=== PATIENT | female | born 1970 | race American Indian/Alaskan Native ===

== ENCOUNTER 2018-01-30 19:08 | Emergency (ER) | payer SELFPAY ==
[2018-01-30 22:37] VITALS: BP 143/103
[2018-01-31] MEDS ORDERED: FLEXERIL PO ONE (02:32)
[2018-01-31] MEDS ORDERED: TORADOL IM ONE (02:32)
--- NOTE | 2018-01-31 02:42 | Emergency Department Report ---
HPI - General Chief Complaint: Pain General Time Seen by Provider: 01/31/18 02:18 - HPI HPI: She is a 47-year-old female presents to the ED for acute on chronic neuropathic shoulder pain 3 weeks. Patient states in the year of 2013 and she had a fall and hurt her right side. Patient's issues today she's been having intermittent pain. Patient states that pain is throbbing aching and tingling in nature. Patient states she feels it on the back of her shoulder sometimes radiates to her arms. She denies any recent trauma fall or injury to the head neck or arm. She denies fever/chills/nausea vomiting/abdominal pain/chest pain/headache/ blurred vision. She she takes no medication has no other medical problems and asthma allergies to any medication ED Past Medical Hx - Past Medical History Additional medical history: MULTIPLE PAIN FROM FALL IN 2013 - Social History Smoking Status: Unknown if ever smoked Substance Use Type: None - Medications Home Medications: Home Medications Medication Instructions Recorded Confirmed Last Taken Type Cyclobenzaprine [Flexeril 10 MG 10 mg PO QHS PRN #24 tablet 01/31/18 Unknown Rx TAB] Diclofenac Sodium 50 mg PO BID #30 tablet. 01/31/18 Unknown Rx ED Review of Systems ROS: Stated complaint: LEG AND BACK PAIN Other details as noted in HPI Constitutional: denies: chills, fever Eyes: denies: eye pain, eye discharge, vision change ENT: denies: ear pain, throat pain Respiratory: denies: cough, shortness of breath, wheezing Cardiovascular: denies: chest pain, palpitations Endocrine: no symptoms reported Gastrointestinal: denies: abdominal pain, nausea, diarrhea Genitourinary: denies: urgency, dysuria, discharge Musculoskeletal: arthralgia, myalgia. denies: back pain, joint swelling Skin: denies: rash, lesions Neurological: denies: headache, weakness, paresthesias Psychiatric: denies: anxiety, depression Hematological/Lymphatic: denies: easy bleeding, easy bruising Physical Exam - Physical Exam Vital Signs: Vital Signs 01/30/18 22:33 Temperature 98.1 F Pulse Rate 88 Respiratory 18 Rate Blood Pressure 143/103 O2 Sat by Pulse 100 Oximetry Physical Exam: GENERAL: Alert and oriented x3, no apparent distress, Normal Gait, atraumatic. HEAD: Head is normocephalic and a-traumatic. EYES: Extra ocular muscles are intact. Pupils are equal, round, and reactive to light and accommodation. NECK: Supple. Non edematous, No C-spine tenderness, full range of motion LUNGS: Symetrical with respiration, CTAB. HEART: S1, S2 present, regular rate and rhythm without murmur, no rubs, no gallops. Non tender to palpation BACK: Full range of motion, no spinal tenderness, nontender to palpation. Tenderness to palpation of the right trapezius muscles EXTREMITIES/MUSCULOSKELETAL: No cyanosis, clubbing, rash, lesions or edema. Full ROM bilaterally. Pedal Pulses 2+ bilaterally. UE 5+ strength bilaterally , NEUROLOGIC: The patient is cooperative with no focal neurologic deficits. Cranial nerves II through XII are grossly intact. Normal speech. Normal sensation in bilateral upper and lower extremities, No loss of sensation, ED Course Vital Signs 01/30/18 22:33 Temperature 98.1 F Pulse Rate 88 Respiratory 18 Rate Blood Pressure 143/103 O2 Sat by Pulse 100 Oximetry ED Medical Decision Making - Medical Decision Making 47-year-old female presents to ED with acute on chronic neuropathic/ radiculopathic pain ED course: Patient received Toradol and Flexeril in ED. Vital signs are normal patient is in no acute distress. Discussed with patient follow-up with primary care physician. Discussed the patient and take medications as prescribed. Patient has no neurological deficit. Patient is alert and oriented 3 and understands all instructions given. Discussed drowsiness effect of Flexeril makes her drowsy and not to operate machinery while taking flexeril. Blood pressure improved to discharge and mormalized Critical care attestation.: If time is entered above; I have spent that time in minutes in the direct care of this critically ill patient, excluding procedure time. ED Disposition Clinical Impression: Radiculopathy of arm, Myalgia Disposition: - TO HOME OR SELFCARE Is pt being admited?: No Does the pt Need Aspirin: No Condition: Stable Instructions: Trigger Point Pain (ED), Cervical Radiculopathy (ED), Musculoskeletal Pain (ED), Heat Pack Application (ED) Additional Instructions: Make sure to follow up with the primary care physician as discussed. Take all your medications as you've been prescribed. If you have any worsening symptoms or develop new symptoms please return to ED immediately. Prescriptions: Cyclobenzaprine [Flexeril 10 MG TAB] 10 mg PO QHS PRN #24 tablet PRN Reason: Muscle Spasm Diclofenac Sodium 50 mg PO BID #30 tablet.dr Referrals: JESSE GRIJALVA MD [Primary Care Provider] - 3-5 Days SADIQ DENTON MD [Staff Physician] - 3-5 Days [facility] [Outside] - 3-5 Days [facility] [Outside] - 3-5 Days Forms: Accompanied Note, Work/School Release Form(ED) Time of Disposition: 02:46
== END 2018-01-31 03:15 | disposition home or self-care (01) ==
LOC: EDBD → ED 19:08
DX: M79.1 Myalgia (principal); M54.10 Radiculopathy, site unspecified
CPT/HCPCS: 96372; 99282; J1885

== ENCOUNTER 2018-11-14 10:48 | Emergency (ER) | payer SELFPAY ==
--- NOTE | 2018-11-14 11:26 | Emergency Department Report ---
ED General Adult HPI - General Chief complaint: Upper Respiratory Infection Stated complaint: FLU SYMPTOMS Time Seen by Provider: 11/14/18 11:21 Source: patient Mode of arrival: Ambulatory Limitations: No Limitations - History of Present Illness Initial comments: Patient is a 48-year-old -[place] female who comes to the ER today complaining of a cough she states that she just feels bad. She is tearful. Sad and depressed. Denies HI or SI. States that she does not work. She stays at home all the time. She has no family here. She is on no medications. -: Gradual, days(s) Location: chest Radiation: non-radiation Consistency: intermittent Improves with: none Worsens with: none Associated Symptoms: cough, weakness. denies: confusion, chest pain, diaphoresis, fever/chills, headaches, loss of appetite, malaise, nausea/vomiting, rash, seizure, shortness of breath, syncope - Related Data Previous Rx's Medication Instructions Recorded Last Taken Type Sulfamethoxazole/Trimethoprim 1 each PO BID #6 tablet 11/14/18 Unknown Rx [Bactrim DS TAB] Allergies Allergy/AdvReac Type Severity Reaction Status Date / Time No Known Allergies Allergy Verified 11/14/18 10:58 ED Review of Systems ROS: Stated complaint: FLU SYMPTOMS Other details as noted in HPI Comment: All other systems reviewed and negative Constitutional: denies: chills, fever Eyes: denies: eye pain ENT: denies: ear pain Respiratory: see HPI, cough Cardiovascular: as per HPI, chest pain. denies: palpitations, dyspnea on exertion, orthopnea Endocrine: denies: excessive sweating Gastrointestinal: denies: abdominal pain Genitourinary: denies: urgency Musculoskeletal: denies: back pain Neurological: denies: headache Psychiatric: as per HPI, anxiety, depression. denies: auditory hallucinations, visual hallucinations, homicidal thoughts Hematological/Lymphatic: denies: easy bleeding ED Past Medical Hx - Past Medical History Previous Medical History?: No Additional medical history: MULTIPLE PAIN FROM FALL IN 2013 - Surgical History Past Surgical History?: No - Family History Family history: no significant - Social History Smoking Status: Current Every Day Smoker Substance Use Type: Alcohol - Medications Home Medications: Home Medications Medication Instructions Recorded Confirmed Last Taken Type Sulfamethoxazole/Trimethoprim 1 each PO BID #6 tablet 11/14/18 Unknown Rx [Bactrim DS TAB] ED Physical Exam - General Limitations: No Limitations General appearance: alert - Head Head exam: Present: atraumatic - Eye Eye exam: Present: normal appearance, PERRL Pupils: Present: normal accommodation - ENT ENT exam: Present: mucous membranes moist - Neck Neck exam: Present: normal inspection - Respiratory Respiratory exam: Present: normal lung sounds bilaterally - Cardiovascular Cardiovascular Exam: Present: regular rate, tachycardia (ST 130 ON ADMIT- 100 ON DC) - GI/Abdominal GI/Abdominal exam: Present: soft, normal bowel sounds - Rectal Rectal exam: Present: deferred - Extremities Exam Extremities exam: Present: normal inspection, full ROM - Back Exam Back exam: Present: normal inspection, full ROM. Absent: CVA tenderness (R), CVA tenderness (L) - Neurological Exam Neurological exam: Present: alert, oriented X3, CN II-XII intact, normal gait, reflexes normal - Psychiatric Psychiatric exam: Present: depressed - Skin Skin exam: Present: warm, dry ED Course Vital Signs 11/14/18 11/14/18 10:58 13:07 Temperature 97.8 F Pulse Rate 130 H 106 H Respiratory 18 18 Rate Blood Pressure 118/88 Blood Pressure 123/97 [Left] O2 Sat by Pulse 100 100 Oximetry ED Medical Decision Making - Lab Data Result diagrams: 11/14/18 11:45 11/14/18 11:45 - EKG Data -: EKG Interpreted by Me EKG shows normal: sinus rhythm Rate: tachycardia - EKG Data When compared to previous EKG there are: no significant change Interpretation: no acute changes - Medical Decision Making LABS NOTED UA NOTED TSH N [address] RESOLVED AMBULATORY AND TAKING PO DEPRESSED MIDDLE AGE FEMALE; LIVES HERE ALONE; TEARFUL- MENTAL HEALTH EVAL NO HI NO SI DC HOME PCP FOLLOW UP GIVEN MHE resources given see MHE note Labs 11/14/18 11/14/18 11/14/18 11:45 11:45 11:45 WBC 2.9 L RBC 4.50 Hgb 13.9 Hct 41.4 MCV 92 MCH 31 MCHC 34 RDW 14.6 Plt Count 193 Sodium 142 Potassium 3.7 Chloride 100.2 Carbon Dioxide 25 Anion Gap 21 BUN 9 Creatinine 0.9 Estimated GFR > 60 BUN/Creatinine Ratio 10 Glucose 120 H Calcium 9.5 Total Bilirubin 0.50 AST 14 ALT 10 Alkaline Phosphatase 72 Troponin T < 0.010 Total Protein 8.8 H Albumin 5.1 H Albumin/Globulin Ratio 1.4 TSH 1.560 Urine Color Urine Turbidity Urine pH Ur Specific [place] Urine Protein Urine Glucose (UA) Urine Ketones Urine Blood Urine Nitrite Urine Bilirubin Urine Urobilinogen Ur Leukocyte Esterase Urine WBC (Auto) Urine RBC (Auto) U Epithel Cells (Auto) Urine Bacteria (Auto) Urine Mucus 11/14/18 Unknown WBC RBC Hgb Hct MCV MCH MCHC RDW Plt Count Sodium Potassium Chloride Carbon Dioxide Anion Gap BUN Creatinine Estimated GFR BUN/Creatinine Ratio Glucose Calcium Total Bilirubin AST ALT Alkaline Phosphatase Troponin T Total Protein Albumin Albumin/Globulin Ratio TSH Urine Color Alyce Urine Turbidity Slightly-cloudy Urine pH 5.0 Ur Specific [place] 1.029 Urine Protein 100 mg/dl Urine Glucose (UA) Neg Urine Ketones 20 Urine Blood Mod Urine Nitrite Neg Urine Bilirubin Neg Urine Urobilinogen 2.0 Ur Leukocyte Esterase Mod Urine WBC (Auto) 26.0 H Urine RBC (Auto) 20.0 U Epithel Cells (Auto) 19.0 H Urine Bacteria (Auto) 2+ Urine Mucus 3+ - Differential Diagnosis RO THYROID DISEASE Critical care attestation.: If time is entered above; I have spent that time in minutes in the direct care of this critically ill patient, excluding procedure time. ED Disposition Clinical Impression: URTI (acute upper respiratory infection), UTI (urinary tract infection), Depression Disposition: TO HOME OR SELFCARE Is pt being admited?: No Does the pt Need Aspirin: No Condition: Stable Additional Instructions: HYDRATE WELL WITH WATER MED ORDERED TODAY FOLLOW UP WE DISCUSSED Prescriptions: Sulfamethoxazole/Trimethoprim [Bactrim DS TAB] 1 each PO BID #6 tablet Referrals: PRIMARY CAREMD [Primary Care Provider] - 3-5 Days [facility] [Outside] - 3-5 Days Time of Disposition: 13:50
[2018-11-14 12:15] LABS: Hematocrit 41.4 % (30.3-42.9); Hemoglobin 13.9 gm/dl (10.1-14.3); Mean Corpuscular HGB Conc 34 % (30-34); Mean Corpuscular Volume 92 fl (79-97); Platelet Count 193 K/mm3 (140-440); Red Cell Distribution Width 14.6 % (13.2-15.2)
[2018-11-14 12:23] LABS: Bacteria,Urine 2+ /HPF (Negative); Bilirubin,Urine NEG (Negative); Blood,Urine MOD (Negative); Color,Urine Amber (Yellow); Mucus,Urine 3+ /HPF
[2018-11-14 12:37] LABS: Alanine Aminotransferase 10 units/L (7-56); Albumin 5.1 g/dL (3.9-5); BUN/Creatinine Ratio 10; Blood Urea Nitrogen 9 mg/dL (7-17); Calcium 9.5 mg/dL (8.4-10.2); Hemolysis Index 4
[2018-11-14] MEDS ORDERED: BACTRIM DS PO ONE (12:55)
[2018-11-14 13:15] VITALS: BP 123/97
== END 2018-11-14 14:27 | disposition home or self-care (01) ==
LOC: ED 10:48
DX: J06.9 Acute upper respiratory infection, unspecified (principal); N39.0 Urinary tract infection, site not specified; F32.9 Major depressive disorder, single episode, unspecified; F41.9 Anxiety disorder, unspecified; F17.200 Nicotine dependence, unspecified, uncomplicated
CPT/HCPCS: 36415; 80053; 81001; 84443; 84484; 85027; 93005; 93010; 99283

== ENCOUNTER 2019-01-18 10:35 | Emergency (ER) | payer SELFPAY ==
[2019-01-18 10:44] VITALS: BP 121/87
[2019-01-18] MEDS ORDERED: IBUPROFEN PO ONE (11:11)
--- NOTE | 2019-01-18 11:11 | Emergency Department Report ---
ED Lower Extremity HPI - General Chief Complaint: Extremity Problem,Nontraumatic Stated Complaint: LFT LEG PAIN/DEHYDRATED Time Seen by Provider: 01/18/19 11:10 Source: patient Mode of arrival: Ambulatory Limitations: No Limitations - History of Present Illness Initial Comments: Patient is a 48-year-old female who comes to the ER today complaining of left knee pain. The pain is behind the knee. There is no swelling, redness or pain. No cyst. She denies any falls. Denies any trauma. Patient states she was attempting to walk yesterday and her knee was hurting he was walking. She is no previous history of trauma to the extremity. PCP none Home medications none Past surgical history Hemorrhoidectomy PMH SCIATICA CHRONIC PAIN - per display trimmer; pt declined when I asked Daily cigarettes and occasional alcohol Mother and father both of trauma MD Complaint: other (KNEE PAIN) -: Gradual, week(s) Type of Injury: unknown Place: home Severity: moderate Improves With: NSAID Worsens With: nothing - Related Data Previous Rx's Medication Instructions Recorded Last Taken Type Naproxen [Naprosyn] 500 mg PO BID PRN #20 tablet 01/18/19 Unknown Rx Allergies Allergy/AdvReac Type Severity Reaction Status Date / Time No Known Allergies Allergy Verified 11/14/18 10:58 ED Review of Systems ROS: Stated complaint: LFT LEG PAIN/DEHYDRATED Other details as noted in HPI Comment: All other systems reviewed and negative Constitutional: denies: chills Eyes: denies: eye pain ENT: denies: ear pain Respiratory: denies: cough Cardiovascular: denies: palpitations Endocrine: denies: excessive sweating Gastrointestinal: denies: nausea Genitourinary: denies: urgency Musculoskeletal: as per HPI. denies: back pain Skin: denies: lesions Neurological: denies: weakness Psychiatric: denies: depression Hematological/Lymphatic: denies: easy bleeding ED Past Medical Hx - Past Medical History Previous Medical History?: Yes Additional medical history: Chronic pain since 2013 - Surgical History Past Surgical History?: No - Family History Family history: no significant - Social History Smoking Status: Never Smoker Substance Use Type: None - Medications Home Medications: Home Medications Medication Instructions Recorded Confirmed Last Taken Type Naproxen [Naprosyn] 500 mg PO BID PRN #20 tablet 01/18/19 Unknown Rx ED Physical Exam - General Limitations: No Limitations General appearance: alert, in no apparent distress - Head Head exam: Present: atraumatic, normocephalic - Eye Eye exam: Present: normal appearance, PERRL - ENT ENT exam: Present: normal exam, mucous membranes moist - Neck Neck exam: Present: normal inspection - Respiratory Respiratory exam: Present: normal lung sounds bilaterally - Cardiovascular Cardiovascular Exam: Present: regular rate - GI/Abdominal GI/Abdominal exam: Present: soft, normal bowel sounds - Rectal Rectal exam: Present: deferred - Extremities Exam Extremities exam: Present: normal inspection, full ROM - Expanded Lower Extremity Exam Left Knee exam: Present: normal inspection, full knee extension. Absent: full ROM, tenderness, swelling, laceration, ecchymosis, deformity, crepidus, dislocation, erythema, effusion, pain w/ pronation/supination, posterior draw sign, pain/laxity with valgus, pain/laxity with varus Lower Leg exam: Present: normal inspection Ankle exam: Present: normal inspection Foot/Toe exam: Present: normal inspection Neuro vascular tendon exam: Present: no vascular compromise Gait: Positive: observed and normal - Back Exam Back exam: Present: normal inspection - Neurological Exam Neurological exam: Present: alert, oriented X3 - Psychiatric Psychiatric exam: Present: normal affect, depressed - Skin Skin exam: Present: warm, dry, intact ED Course Vital Signs 01/18/19 01/18/19 01/18/19 10:43 11:30 11:54 Temperature 97.5 F L Pulse Rate 103 H Respiratory 16 17 16 Rate Blood Pressure 121/87 [Left] O2 Sat by Pulse 100 Oximetry ED Lower Extremity MDM - Radiology Data Radiology results: report reviewed, image reviewed nap - Medical Decision Making Vital Signs 01/18/19 01/18/19 10:43 11:30 Temperature 97.5 F L Pulse Rate 103 H Respiratory 16 17 Rate Blood Pressure 121/87 [Left] O2 Sat by Pulse 100 Oximetry her 90 on provider exam xray noted medicated with motrin for pain DC HOME WITH DC POC Critical care attestation.: If time is entered above; I have spent that time in minutes in the direct care of this critically ill patient, excluding procedure time. ED Disposition Clinical Impression: Arthritis, Knee pain, left Disposition: DC-01 TO HOME OR SELFCARE Is pt being admited?: No Does the pt Need Aspirin: No Condition: Stable Instructions: Arthralgia (ED) Additional Instructions: you are not dehydrated hydrate well with water xray shows arthritis to knee meds as ordered today I've given you a referral to a PCP see below to follow up to be sure you are getting better Prescriptions: Naproxen [Naprosyn] 500 mg PO BID PRN #20 tablet PRN Reason: Pain Referrals: MACO GAYTAN MD [Primary Care Provider] - 3-5 Days [facility] [Outside] - 3-5 Days Time of Disposition: 11:40
--- NOTE | 2019-01-18 12:00 | XRay Report ---
LEFT KNEE, 3 views: History: Pain. The bony architecture is intact without evidence of fracture or dislocation. No significant soft tissue abnormality is seen. IMPRESSION: Left knee within normal limits.
== END 2019-01-18 11:56 | disposition home or self-care (01) ==
LOC: ED 10:35
DX: G89.29 Other chronic pain (principal); M17.12 Unilateral primary osteoarthritis, left knee